=== PATIENT | female | born 1995 | race Caucasian/White ===

== ENCOUNTER 2020-01-12 17:36 | Emergency (ER) | payer BC ==
[~2020-01-12] VITALS: Ht 157.5 cm; Wt 63.5 kg
[2020-01-12] MEDS ORDERED: BIRTH CONTROL (17:46)
[2020-01-12 18:25] LABS: ABSOLUTE LYMPHOCYTES 1.4 thou/uL (0.8-5.3); ABSOLUTE MONOCYTES 0.4 thou/uL (0.0-1.2); ABSOLUTE NEUTROPHILS 3.9 thou/uL (1.6-8.1); BASOPHILS 0.5 %; EOSINOPHILS 0.7 %; HEMATOCRIT 42.7 % (37.0-47.0); HEMOGLOBIN 14.5 gm/dL (12.0-15.0); LYMPHOCYTES 24.2 %; MCH 29.9 pg (26.0-34.0); MCHC 33.9 g/dL (28.0-37.0); MCV 88.2 fL (80.0-100.0); MONOCYTES 7.5 %; MPV 8.4 fl. (7.2-11.1); NUCLEATED RBCS 0 /100WBC; PLATELET COUNT* 306 thou/uL (150-400); POLYS 67.1 %; RBC 4.84 mil/uL (4.20-5.00); RDW-CV 13.3 % (10.5-14.5); WBC 5.8 thou/uL (4.0-11.0)
[2020-01-12 18:31] LABS: CALCIUM 9.4 mg/dL (8.5-10.1); CREATININE 0.7 mg/dL (0.6-1.3); POTASSIUM 3.8 mmol/L (3.5-5.1)
[2020-01-12 18:36] LABS: MAGNESIUM 2.1 mg/dL (1.8-2.4); TOTAL BILIRUBIN 0.4 mg/dL (<0.1-1.0); TOTAL PROTEIN 8.2 g/dL (6.4-8.2)
[2020-01-12 20:30] LABS: URINE BILIRUBIN NEGATIVE (Negative); URINE BLOOD 3+ (Negative); URINE CLARITY CLEAR; URINE COLOR YELLOW; URINE GLUCOSE-RANDOM NEGATIVE (Negative); URINE KETONES 2+ (Negative); URINE LEUKOCYTES-REFLEX NEGATIVE (Negative); URINE NITRITE-REFLEX NEGATIVE (Negative); URINE PROTEIN NEGATIVE (Negative); URINE UROBILINOGEN 0.2 E.U./dl (0.2-1.0)
[2020-01-12] MEDS ORDERED: ATIVAN0.5 M1 PO (20:39)
[2020-01-12 21:07] LABS: CASTS None Seen /LPF (None Seen); SQUAMOUS 0-3 Few /LPF (0-3)
[2020-01-12 21:08] LABS: BACTERIA-REFLEX 1-9 Few /HPF (None Seen); CRYSTALS None Seen /LPF (None Seen); URINE RBC 3-10 Few /HPF (0-2); URINE WBC-REFLEX 0-5 Rare /HPF (0-5)
[2020-01-12 21:21] VITALS: BP 108/72
--- NOTE | 2020-01-13 09:34 | EKG ---
[place] [address] ELECTROCARDIOGRAM REPORT Name: TREVOR TERRAZAS Room: [facility]#: [id number] Admission: 01/12/20 Attend Phys: Discharge: 01/12/20 Date of : [birth year] Date of Service: 01/12/201742 Report #: [id number] THIS REPORT FOR: //name// [facility] ED Test Date: 2020-01-12 Test Time: 17:43:26 Pat Name: TREVOR TERRAZAS Department: Room: Gender: Sample Selector: [facility] [place] 1995 Requested By: Rach Cedeño Order Number: [id number] MD: Eduar De Los Santos Measurements Intervals [place] Rate: 107 P: 24 MN: 138 QRS: 80 QRSD: 87 T: 36 QT: 313 QTc: 418 Interpretive Statements Sinus tachycardia Baseline wander in lead(s) V3 No previous ECG available for comparison Electronically Signed On 01-13-2020 9:34:42 [employer] by Eduar De Los Santos [email or web address] <ELECTRONICALLY SIGNED> By: Eduar De Los Santos MD, MERGED WITH [facility] 01/13/20 0934 [id number] Eduar De Los Santos MD, FACC /EPI
== END 2020-01-12 21:21 | disposition home or self-care (01) ==
LOC: M.ERS 17:36
PROVIDERS: Nurse Practitioner Family
DX: F41.9 Anxiety disorder, unspecified (principal); T38.4X5A Adverse effect of oral contraceptives, initial encounter; Y92.89 Other specified places as the place of occurrence of the external cause